=== PATIENT | female | born 1965 | race Caucasian/White ===

== ENCOUNTER 2023-02-02 10:34 | Observation (INO) | payer OTHER ==
[~2023-02-02] VITALS: Ht 160 cm; Wt 69.4 kg
[2023-02-02] VITALS (10 sets, daily range): BP systolic 114–170; BP diastolic 64–95
[~2023-02-02 10:34] MED LIST: LORTAB5 PO
[2023-02-02 11:47] LABS: URINE BILIRUBIN - DIPSTICK NEGATIVE (NEGATIVE); URINE BLOOD DIPSTICK NEGATIVE (NEGATIVE); URINE COLOR YELLOW; URINE GLUCOSE - DIPSTICK NEGATIVE (NEGATIVE); URINE KETONE NEGATIVE (NEGATIVE); URINE LEUK ESTERASE SMALL (NEGATIVE); URINE NITRITE - DIPSTICK NEGATIVE (Negative); URINE PROTEIN - DIPSTICK NEGATIVE (NEG-TRACE); URINE UROBILINOGEN - DIPSTICK 0.2 E.U./dL (0.2)
[2023-02-02 11:51] LABS: BASO% 0.6 % (0-3); EOS% 2.4 % (0-8); HEMOGLOBIN 13.8 g/dl (12.0-16.0); IMMATURE GRANULOCYTES 0.1 % (0.0-5.0); LYMPH% 17.2 % (15-41); MEAN CELL VOLUME 83.3 fL CALC (80.0-100.0); MEAN CORPUSCULAR HGB 26.1 pG CALC (26.0-32.0); MEAN CORPUSCULAR HGB CONC 31.4 g/dL CAL (32.0-36.0); MONO% 6.6 % (2-13); NEUT# 5.23 thou/uL (2.00-7.15); NEUT% 73.1 % (42-76); RED BLOOD COUNT 5.28 mill/uL (4.20-5.60); RED CELL DISTRI WIDTH 14.4 % (11.5-15.5)
[2023-02-02 11:57] LABS: URINE SQUAMOUS EPITHELIAL CELL MODERATE EPI/hpf (0-FEW)
[2023-02-02 11:59] LABS: ALBUMIN 4.6 g/dL (3.2-5.0); ALKALINE PHOSPHATASE 97 u/l (38-126); BILIRUBIN, TOTAL 0.4 mg/dL (0.02-1.3); BUN 11 mg/dL (7-17); BUN/CREATININE RATIO 10 (12-20 (CALC)); CHLORIDE 102 mmol/l (95-108); CREATININE 1.1 mg/dL (0.5-1.0); GFR FOR AFR.AMER. > 60 ML/MIN (>=60 (CALC)); GFR OTHER RACES 51 ML/MIN (>=60 (CALC)); LIPASE 41 u/l (23-300); POTASSIUM 3.9 mmol/l (3.5-5.1); SGOT/AST 26 u/l (14-36); SODIUM 141 mmol/l (137-146); TOTAL PROTEIN 7.4 g/dL (6.3-8.2)
[2023-02-02 12:04] LABS: ANION GAP 11 (6-22 (CALC)); CARBON DIOXIDE 32 mmol/l (22-30)
[2023-02-02] MEDS ORDERED: MOUNJARO7.5 MG (13:51)
[2023-02-02] MEDS ORDERED: LORAZEPAM0.5 MG PO (13:52)
[2023-02-02] MEDS ORDERED: FAMOTIDINE20 M1 PO (13:52)
[2023-02-02] MEDS ORDERED: LIOTHYRONINE S25 MCG PO (13:53)
[2023-02-02] MEDS ORDERED: SERTRALINE50 MG PO (13:54)
[2023-02-02] MEDS ORDERED: ZOFRAN4 MG/TAB PO (13:55)
[2023-02-02] MEDS ORDERED: NEXIUM40 M1 PO (13:55)
[2023-02-02] MEDS ORDERED: MELOXICAM7.5 MG PO (13:55)
[2023-02-03 03:57] VITALS: BP 105/58
[2023-02-03 07:15] VITALS: BP 99/54
[2023-02-03] MEDS ORDERED: PERCOCET 5/325M1 TAB PO (08:08)
[2023-02-03 09:46] VITALS: BP 139/68
[2023-02-06] MEDS ORDERED: TRAMADOL HCL50 MG PO (11:53)
== END 2023-02-03 15:26 | disposition home or self-care (01) | DRG 419 ==
LOC: ED 10:34 → ED-I 12:17 → ED 12:59 → MS2 13:00
PROVIDERS: Nurse Practitioner; ADMIT Surgery; ATTEND Surgery
PROC: 0FT44ZZ Resection of Gallbladder, Percutaneous Endoscopic Approach (ICD-10-PCS; principal; 2023-02-03)
DX: K80.00 Calculus of gallbladder with acute cholecystitis without obstruction (principal); I10 Essential (primary) hypertension; E11.9 Type 2 diabetes mellitus without complications; K21.9 Gastro-esophageal reflux disease without esophagitis; E78.00 Pure hypercholesterolemia, unspecified; F17.200 Nicotine dependence, unspecified, uncomplicated; Z20.822 Contact with and (suspected) exposure to COVID-19
CPT/HCPCS: G0378; J0131